=== PATIENT | female | born 1940 | race Hispanic/Latino ===

== ENCOUNTER → 2018-09-27 | Outpatient (CLI) | payer OTHER | END | disposition home or self-care (01) | LOC: SHCH 12:41 | PROVIDERS: ATTEND Internal Medicine Cardiovascular Disease | DX: R07.9 Chest pain, unspecified (principal); R00.2 Palpitations | CPT/HCPCS: 93306 ==

== ENCOUNTER → 2024-06-06 | Outpatient (CLI) | payer OTHER | END | disposition home or self-care (01) | LOC: SHCH 13:06 | PROVIDERS: ATTEND Internal Medicine Cardiovascular Disease | DX: R00.2 Palpitations (principal) | CPT/HCPCS: 93306 ==

== ENCOUNTER 2024-09-01 14:23 | Emergency (ER) | payer OTHER ==
[~2024-09-01] VITALS: Ht 160 cm; Wt 90.7 kg
--- NOTE | 2024-09-01 14:32 | ERN ---
ED Note History of Present Illness Stated Complaint: FALL, SWOLLEN HAND Chief Complaint: Mechanical Fall Time Seen by MD: 14:24 Dictation: PATIENT IS AN 83-YEAR-OLD FEMALE HERE WITH HER DAUGHTER WITH COMPLAINTS OF LEFT WRIST PAIN SWELLING STATUS POST A FALL WHILE PULLING WEEDS1 HOUR PRIOR TO ARRIVAL. SHE STATES SHE LOST HER BALANCE AND LANDED ON HER EXTENDED LEFT ARM AND HAND. SHE DID NOT HIT HER HEAD NO LOC. SHE IS TAKING ELIQUIS. NEUROVASCULAR CMS INTACT. PATIENT'S ONLY COMPLAINT IS TO HER LEFT WRIST Allergies: Coded Allergies: No Known Allergies (Unverified Allergy, 04/08/13) Past Medical History History: Not Applicable RN Note Reviewed/Agreed w/PFSH: Yes Review of System Dictation CONSTITUTIONAL: NEGATIVE EXCEPT FOR HPI HEAD/FACE: NEGATIVE EXCEPT FOR HPI EENT: NEGATIVE EXCEPT FOR HPI RESPIRATORY: NEGATIVE EXCEPT FOR HPI GASTROINTESTINAL/ABDOMINAL: NEGATIVE EXCEPT FOR HPI GENITOURINARY: NEGATIVE EXCEPT FOR HPI MUSCULOSKELETAL: NEGATIVE EXCEPT FOR HPI LEFT WRIST PAIN SWELLING INTEGUMENTARY: NEGATIVE EXCEPT FOR HPI NEUROLOGICAL/PSYCH: NEGATIVE EXCEPT FOR HPI HEMATOLOGIC/LYMPHATIC: NEGATIVE EXCEPT FOR HPI ALL SYSTEMS NEGATIVE, EXCEPT NOTED ABOVE. 13 POINT REVIEW OF SYSTEMS ASSESSED AND ALL NEGATIVE EXCEPT FOR ABOVE. Initial Vital Sign VS Vital Signs Date Time Temp Pulse Resp B/P (MAP) Pulse Ox O2 Delivery O2 Flow Rate FiO2 09/01/24 14:29 98.4 52 16 160/78 97 0 Physical Exam Dictation VITAL SIGNS REVIEWED GENERAL APPEARANCE: ALERT, ORIENTED X 3, NO ACUTE DISTRESS, WELL DEVELOPED, NOURISHED. HEAD AND FACE: NON-TRAUMATIC. EYES: PERRL, PINK CONJUNCTIVAS, EYELID NO TRAUMA, ANTERIOR CHAMBER WITH ARCUS SENILIS. EARS: PINNAS INTACT AND NO SIGNS OF TRAUMA OR ERYTHEMA EAR CANALS CLEAR AND NO D ISCHARGE TM NO ERYTHEMA NOSE: NO DISCHARGE, NO BLEEDING. OROPHARYNX: MOUTH NORMAL, TONGUE PINK, PHARYNX CLEAR,NO ERYTHEMA, TONSILS NO EXUDATES, NO ABSCESSES NOTED, MUCOUS MEMBRANE MOIST NECK: SUPPLE, NON-TENDER, NO THYROMEGALY, NO MASSES, NO JVD, NO BRUITS BREAST:DEFERRED CHEST:NO TENDERNESS, NO CREPITUS, NO PARADOXICAL MOVEMENT, NO RETRACTIONS LUNGS:CLEAR, WELL-VENTILATED, SYMMETRIC, NO RALES, NO WHEEZING, NO RHONCHI, NO STRIDOR, GOOD BREATH SOUNDS BILATERALLY HEART: REGULAR RATE, REGULAR RHYTHM, NO MURMUR, NO GALLOPS VASCULAR: NO PERIPHERAL EDEMA, ABDOMEN: SOFT, POSITIVE BOWEL SOUNDS, NONDISTENDED, NO GUARDING, NONTENDER, NO REBOUND, NO MASSES NO HEPATOMEGALY, NO SPLENOMEGALY, NO WHITE'S SIGN, NO HERNIAS. RECTAL: DEFERRED GENITAL: DEFERRED NEUROLOGICAL: NORMAL SPEECH, MOTOR FUNCTION INTACT, SENSORY FUNCTION INTACT MUSCULOSKELETAL: NECK NONTENDER, FULL RANGE OF MOTION, BACK NONTENDER, FULL RANGE OF MOTION, EXTREMITIES: LEFT WRIST SWELLING DIFFUSE WITH DECREASED RANGE OF MOTION. SKIN: COLOR PINK, DRY, NO TURGOR, NO RASH, NO LACERATIONS, NO ABRASIONS, NO CONTUSIONS. LYMPHATIC: DEFERRED Results (Laboratory/Radiology) Laboratory/Radiology Mondisplaced comminuted articular impaction fracture deformity through the distal left radial metaphysis and nondisplaced ulnar styloid process fracture. Mild dorsal angulation associated with the distal radial fracture. Scaphoid bone is intact. Ulnar variance is within normal limits. Carpal alignment is well maintained. No radiopaque foreign body noted. IMPRESSION: Nondisplaced comminuted articular impaction fracture deformity through the distal left radial metaphysis and nondisplaced ulnar styloid process fracture. CASE DISCUSSED WITH NO REDUCTION INDICATED WE WILL PLACED IN A REVERSE SUGAR-TONG SPLINT Labs Reviewed?: Yes ED Course ED Course Orders Procedure Category Date Status Time Wrist Comp 3+Vws Lt RAD 09/01/24 Taken 14:29 Apply Ice Pack To: CPOE 09/01/24 Transmitted (Er) 14:29 Acetaminophen With PHA 09/01/24 Complete Codeine (Tylenol-Code 14:30 Current Medications Medications (Trade) Dose Ordered Sig/Enrique Route PRN Reason Start Time Stop Time Status Last Admin Dose Admin Acetaminophen/ Codeine Phosphate (TYLenol-coDEINE TAB) 1 tab ONCE ONCE PO 09/01/24 14:30 09/01/24 14:32 DC Vital Signs Date Time Temp Pulse Resp B/P (MAP) Pulse Ox O2 Delivery O2 Flow Rate FiO2 09/01/24 14:29 98.4 52 16 160/78 97 0 [employer]OUS[employer] F[employer] HUNDRED PATIENT IS AND DAUGHTER SHOWN X-RAY SHE IS AWARE SHE HAS A PROBABLE SURGICAL FRACTURE, WE WILL BE DISCHARGED HOME WITH A SUGAR-TONG SPLINT AND TOLD TO FOLLOW UP WITH THE ORTHOPEDICS. [facility] NEUROVASCULAR CMS INTACT POST PLACEMENT Medical Decision Making MDM MEDICAL DISCHARGE MAKING BASED ON EMPIRIC TREATMENT FOR PAIN AND X-RAY OF LEFT WRIST. PATIENT HAS A COMMINUTED DISTAL RADIAL HEAD FRACTURE PLACED IN REVERSE SUGAR-TONG SPLINT NEUROVASCULAR CMS INTACT POST PLACEMENT DISCHARGED HOME WITH TYLENOL NO.3 FOR SEVERE PAIN RICE INSTRUCTIONS ORTHOPEDIC REFERRAL FOR MONDAY DX & DISP Disposition: Discharge Departure Impression: Primary Impression: Distal radius fracture, left Additional Impression: Fall Condition: Stable Scripts Acetaminophen with Codeine (Acetaminophen-Cod #3 Tablet) 300 Mg-30 Mg Tablet 1 TAB PO Q4H PRN for MODERATE TO SEVERE PAIN, #15 TAB 0 Refills Prov: SAKSHI GREY NP 09/01/24 Additional Instructions: Follow-up with primary care provider in 1 to 2 days. Take medications as directed here in the emergency room. Okay to continue home medications unless otherwise discussed during your visit in the emergency room today. Return to your nearest emergency room if symptoms worsen or if there is no improvement. Call 911 if you need immediate assistance. Take Tylenol or Motrin [id number] as needed and if no contraindications are present. Increase oral hydration. A wound culture or urine culture was ordered here in the emergency room department please follow-up with primary care provider and advise them to get repeat ports from our facility. If you had any wrap/splints that were applied here, please do not remove them until you see your primary care or specialty. Splint/sling/no weight-bearing until cleared by orthopedic surgeon, call him for an appointment tomorrow. Apply cool compresses three to 4 times a day and keep arm in sling. Take Tylenol with codeine for severe pain Referrals: TAMI HANNA (PCP) LISSETH MINOR MD Time of Disposition: 15:03 I have reviewed the case, and I agree with, Diagnosis and Plan SAKSHI GREY NP Sep 01, 2024 14:32
--- NOTE | 2024-09-01 14:53 | HMCIMG ---
LEFT WRIST RADIOGRAPHS - 3 VIEWS INDICATION: Pain COMPARISON: None FINDINGS: AP, lateral, and oblique views. Nondisplaced comminuted articular impaction fracture deformity through the distal left radial metaphysis and nondisplaced ulnar styloid process fracture. Mild dorsal angulation associated with the distal radial fracture. Scaphoid bone is intact. Ulnar variance is within normal limits. Carpal alignment is well maintained. No radiopaque foreign body noted. IMPRESSION: Nondisplaced comminuted articular impaction fracture deformity through the distal left radial metaphysis and nondisplaced ulnar styloid process fracture.
[2024-09-01] MEDS: acetaMINOPHEN WITH coDEINE 1 TAB TAB PO ONE (14:54)
[2024-09-01 14:58] VITALS: BP 124/61; PULSE 87; RESP 20; TEMP 97.8; O2SAT 98
[2024-09-01] MEDS ORDERED: ACET-2079 PO (15:05)
== END 2024-09-01 15:36 | disposition home or self-care (01) ==
LOC: EDH 14:23
DX: S52.512A Displaced fracture of left radial styloid process, initial encounter for closed fracture (principal); W18.39XA Other fall on same level, initial encounter; Y93.89 Activity, other specified; Y92.89 Other specified places as the place of occurrence of the external cause; Y99.8 Other external cause status
CPT/HCPCS: 29125; 73110; 99284